=== PATIENT | female | born 1985 | race Caucasian/White ===

== ENCOUNTER 2016-11-05 16:35 | Emergency (ER) | payer OTHER ==
[~2016-11-05] VITALS: Ht 177.8 cm; Wt 72.7 kg
[2016-11-05 16:36] VITALS: TEMP 98.1
[2016-11-05 17:35] LABS: BASO # 0.1 (0.0-0.2); BASO % 0.6 % (0.0-2.0); EOS # 0.1 (0.0-0.7); GRAN # 7.2 (1.4-6.5); GRAN % 71.3 % (42.2-75.2); HEMATOCRIT 38.7 % (37.0-47.0); HEMOGLOBIN 13.2 g/dl (12.5-16.0); LYMPH % 19.5 % (20.0-51.0); MEAN CELL VOLUME 91 fl (80.0-100.0); MEAN CORPUSCULAR HEMOGLOBIN 31 pg (27.0-31.0); MEAN CORPUSCULAR HGB CONC 34 g/dl (33.0-37.0); MEAN PLATELET VOLUME 10.2 fl (7.4-10.4); MONO # 0.8 (0.1-0.6); MONO % 7.5 % (1.7-9.3); PLATELET COUNT 286 K/mm3 (130-400); RED BLOOD COUNT 4.27 M/mm3 (4.10-5.30); REDCELL DISTRIBUTION WIDTH-CV 12.5 % (11.5-14.5); WHITE BLOOD COUNT 10.1 K/mm3 (4.8-10.8)
[2016-11-05 17:50] LABS: ADJUSTED CALCIUM 9.2 mg/dL (8.4-10.2); ALBUMIN 3.9 gm/dL (3.5-5.0); BILIRUBIN,TOTAL 0.6 mg/dL (0.0-1.0); CALCIUM 9.1 mg/dL (8.4-10.2); CREATININE, serum 0.62 mg/dL (0.52-1.25); POTASSIUM 3.7 mmol/L (3.4-5.0); TOTAL PROTEIN 6.8 gm/dL (6.4-8.2)
[2016-11-05 18:37] LABS: PH 6 (5-8); SQUAMOUS EPITHELIAL None Seen /hpf; URINE APPEARANCE Clear; URINE BACTERIA None Seen /hpf; URINE BILIRUBIN Negative (NEGATIVE); URINE BLOOD Negative (NEGATIVE); URINE COLOR Yellow; URINE GLUCOSE Negative (NEGATIVE); URINE KETONE Negative (NEGATIVE); URINE UROBILINOGEN Negative (NEGATIVE); URINE WBC 0-2 /hpf
[2016-11-05 20:31] VITALS: BP 105/66; PULSE 66
== END 2016-11-05 20:38 | disposition home or self-care (01) ==
LOC: COL.ER 16:35
PROVIDERS: Nurse Practitioner
DX: R42 Dizziness and giddiness (principal); R53.81 Other malaise; R11.0 Nausea; R00.2 Palpitations; R53.1 Weakness; R06.02 Shortness of breath; G44.209 Tension-type headache, unspecified, not intractable; M54.5 Low back pain
CPT/HCPCS: J1885; J2405; J7030

== ENCOUNTER 2022-08-20 12:44 | Day surgery (SDC) | payer OTHER ==
[2022-08-20] VITALS (8 sets, daily range): BP systolic 89–101; BP diastolic 53–68; PULSE 70–79; TEMP 98.7
[~2022-08-20] VITALS: Ht 175.3 cm; Wt 66.5 kg
[~2022-08-20 12:44] MED LIST: BUSPAR5 MG PO
[2022-08-20] MEDS ORDERED: ATIVAN 0.50.5 MG/TAB PO (13:10)
[2022-08-20] MEDS ORDERED: PROTONIX 40MG T40 MG PO (13:12)
[2022-08-20 13:28] LABS: HEMATOCRIT 37.1 % (37.0-47.0); HEMOGLOBIN 12.9 g/dl (12.5-16.0); MEAN CELL VOLUME 90 fl (80.0-100.0); MEAN CORPUSCULAR HEMOGLOBIN 31 pg (27-31); MEAN CORPUSCULAR HGB CONC 35 g/dl (33.0-37.0); MEAN PLATELET VOLUME 9.7 fl (7.4-10.4); PLATELET COUNT 249 K/mm3 (130-400); RED BLOOD COUNT 4.14 M/mm3 (4.10-5.30); REDCELL DISTRIBUTION WIDTH-CV 12.6 % (11.5-14.5)
[2022-08-20 13:43] LABS: CREATININE, serum 0.59 mg/dL (0.57-1.11); POTASSIUM 3.7 mmol/L (3.5-4.5)
[2022-08-20 13:44] LABS: PARTIAL THROMBOPLASTIN TIME 32.2 SECONDS (26.0-37.0)
--- NOTE | 2022-08-20 14:39 | NUR ---
Pt was previously perscribed plavix but states she lost it and never started taking it. Ramiro Torre APRN was notified and pt will be medicated with loading dose of plavix prior to procedure. Pt states she is feeling anxiety has improved with ativan given previously.
--- NOTE | 2022-08-20 14:59 | NUR ---
SEE MERGE FOR ALL MEDICATIONS, VITAL SIGNS AND INTERVENTIONS.
[2022-08-20] MEDS ORDERED: CRESTOR 10MG10 MG PO (15:48)
--- NOTE | 2022-08-20 16:11 | NUR ---
Ramiro Torre APRN aware of pt's blood pressure readings with SBP consistently in the 90s. He states no action required as this is pt's baseline. Pt is resting comfortably in bed. brought in food for pt. She denies needs at this time.
--- NOTE | 2022-08-20 16:50 | NUR ---
Report from Carmel Juan.
--- NOTE | 2022-08-20 17:01 | NUR ---
Report given to MARYAM Winkler who will take over cares of pt. Pt has shane sleeping, wakes easily when staff enters room. Free of complaints. Call light in reach.
--- NOTE | 2022-08-20 17:15 | NUR ---
Discharge instructions gien to pt.Pt verbalizes understanding.Pt up and dressing at this time.
--- NOTE | 2022-08-20 17:48 | NUR ---
Dressing observed clean,dry,intact and soft to touch.Pt escorted out via wheelchair by this nurse.
== END 2022-08-20 17:48 ==
LOC: COL.CAR 12:44
PROVIDERS: Internal Medicine Interventional Cardiology
DX: R94.39 Abnormal result of other cardiovascular function study (principal); R06.09 Other forms of dyspnea; R00.2 Palpitations; Z28.310 Unvaccinated for COVID-19
CPT/HCPCS: C1769; J1644; J2250; J3010; Q9967